=== PATIENT | female | born 1970 ===

== ENCOUNTER 2025-05-29 15:43 | Outpatient (AMB) | payer OTHER, SELFPAY ==
--- NOTE | 2025-05-29 15:44 | MHC.OFFVIS ---
Vital Signs 05/29/25 15:50 Height 5 ft 3 in Weight 213 lb 8 oz BMI 37.8 BP 139/77 Blood Pressure Location Rt brachial Position Sitting Pulse 89 Pulse Source Pulse Oximeter Pulse Oximetry (%) 100 Oxygen Delivery Method Room Air Intake Visit Reasons: multiple joint pain Intake Note: Pain today 03/15 Technical Proposal Writer Required: Yes Technical Proposal Writer Language: Production Finisher Services: Technical Proposal Writer Offered & Declined Technical Proposal Writer Name: Oleg- Accompanied by: Spouse Allergies No Known Allergies Allergy (Verified 05/29/25 15:49) HPI Comments Details: The patient is a 54-year-old individual presenting for an initial evaluation of chronic pain syndrome and polyarthralgia affecting multiple joints, including the upper arms, shoulders, elbows, knees, feet, and lower back. The patient identifies the shoulder pain as the most bothersome symptom, with the left shoulder being worse than the right. The pain is described as aching, sore, and heavy, with radiation to the upper and lower extremities. Pain severity peaks at 9/10 between 9:00 PM and 10:00 PM and is at its lowest at 1-3/10 between 9:00 AM and 12:00 PM. The pain adversely affects daily functioning, including housework, personal care, and sleep. Past medical history is significant for arthritis, chronic fatigue, headaches, depression, and obesity. The patient also reports chronic lower back pain with associated sciatica that runs down the left leg. The patient is followed by a Psychiatrist, Dr. Cardoza, and receives psychological counseling for chronic pain and depression. The patient also sees a weight management doctor who prescribes phentermine for obesity. The patient denies a history of diabetes. Previous treatments include injections from Dr. Oden, though not in the shoulders. The patient has previously undergone physical therapy for a leg issue and has a scheduled evaluation for shoulder physical therapy next week. For self-management of pain, the patient has used topical treatments including creams like Icy Hot, patches, and diclofenac gel, as well as oral medications such as Tylenol, naproxen, and ibuprofen. - Onset/Timing: Pain is most severe between 9:00 PM and 10:00 PM, rated 9/10, and less severe between 9:00 AM and 12:00 PM, rated 1-3/10. - Quality/Character: The pain is described as aching, sore, hurting, and heavy. - Primary Location: Affects multiple joints including upper arms, shoulders, elbows, knees, feet, and lower back, with the shoulders being the most bothersome area. - Radiation: Pain radiates to the upper and lower extremities, and specifically from the back down the left arm. - Exacerbating Factors: Pain is worsened by certain activities, such as reaching to the backside pocket, blow-drying hair, and cooking (e.g., stirring rice). - Interference with Function: Pain affects daily functioning, housework, personal care, and sleep. - Affect: The patient receives psychological counseling for chronic pain and depression; sleep is impaired by body aches. - Analgesia: The patient uses topical treatments (creams, patches, diclofenac) and [id number] oral medications including Tylenol, naproxen, and ibuprofen for pain relief. - Adverse Effects: No side effects from current medications were reported. - Activities of Daily Living: Daily functioning, housework, personal care, and sleep are all negatively impacted by pain. - Aberrant Drug-Related Behaviors: None [facility] Medical History Chronic right shoulder pain Urinary incontinence Chronic left shoulder pain Osteoarthritis of knee GLORY (obstructive sleep apnea) Migraine without status migrainosus Microcytic anemia Low libido Chronic pain of both knees Chronic midline low back pain with left-sided sciatica Chronic cough Chest pain Asthma Arthritis Anxiety and depression Abnormal mammogram Abnormal cervical Papanicolaou smear Review of Systems Const Details: - Constitutional: Reports chronic fatigue and insomnia, which is attributed to body aches. - Neurological: Reports headaches and sciatica running down the left leg. - Musculoskeletal: Reports diffuse pain in multiple joints including the shoulders, arms, elbows, knees, feet, and lower back. - Psychiatric: Reports a history of depression and anxiety. All systems reviewed & are unremarkable except as noted in HPI and below Physical Exam Vital Signs: Last Vital Signs Pulse 89 05/29/25 15:50 BP 139/77 05/29/25 15:50 Pulse Ox 100 05/29/25 15:50 Oxygen Delivery Method Room Air 05/29/25 15:50 BMI result Body Mass Index 37.8 General: Appears afebrile. Alert and oriented. Mood and affect appropriate. Follows and participates in conversation appropriately. Respiratory effort is unlabored. No cough. Able to transition from sit to stand unassisted. Ambulates with bilaterally normal heel strike and toe off. Multiple widespread TTPs bilaterally, including upper and lower extremities. Extrem General: Yes capillary refill normal, Yes no clubbing, cyanosis or edema and Yes no calf tenderness Right upper extremity: shoulder/upper arm (Limited ROM due to pain, difficulty with overhead reaches) Details: tenderness Location: of the A-C joint and over the subacromial bursa and crepitus; no swelling, no ecchymosis and no unusual warmth Left upper extremity: shoulder/upper arm (Limited ROM due to pain with I/E rotations) Details: tenderness Location: of the A-C joint, over the biceps tendon and over the subacromial bursa and crepitus; no swelling, no ecchymosis and no unsual warmth Results Reviewed Results Reviewed: XR SHOULDER, bilateral 05/29/25 CLINICAL INFORMATION: M25.511 - Pain in right shoulder COMPARISON: None available. TECHNIQUE: AP external rotation, Grashey, scapular Y, and axillary views of the left shoulder. FINDINGS: RIGHT SHOULDER: The AC joint is intact and unremarkable. There are small marginal sites involving medial humeral head and inferior glenoid. There is no dislocation. There is no soft tissue calcification. LEFT SHOULDER: On the external rotation view, there is subtle elevation of distal clavicle at the AC joint. The AC joint is otherwise unremarkable. Small marginal sites are visible along the medial humeral head and inferior glenoid. There is faint calcific density projecting along the anatomic neck of humerus on the frontal views, just lateral to the midline. On the axillary view, there is possible calcific density along the posterior surface of the humeral head. IMPRESSION: Right shoulder demonstrates mild glenohumeral degenerative change. Left shoulder: There is subtle elevation of the distal clavicle relative to acromion raising question of grade 1 or grade 2 AC joint separation. There are mild degenerative changes in the glenohumeral joint. On the frontal view, there is faint calcification that projects over the anatomic neck region of the humerus, just lateral to the midline. On the axillary view, there is possibly calcification along the posterior surface of the humeral head raising question of infraspinatus calcific tendinitis. Assessment & Plan Assessment & Plan (1) Bilateral shoulder pain: Code(s): M25.511 - Pain in right shoulder; M25.512 - Pain in left shoulder Category: Medical (2) Osteoarthritis of shoulders, bilateral: Code(s): M19.011 - Primary osteoarthritis, right shoulder; M19.012 - Primary osteoarthritis, left shoulder Category: Medical (3) Painful arc syndrome: Code(s): M75.100 - Unspecified rotator cuff tear or rupture of unspecified shoulder, not specified as traumatic Category: Medical (4) Polyarthralgia: Code(s): M25.50 - Pain in unspecified joint Category: Medical Plan The focus of this visit is on the patient's primary complaint of bilateral shoulder pain. To further evaluate this, bilateral shoulder x-rays were obtained today. Given imaging findings, we will proceed with Orthopedic evaluation and physical therapy. If physical therapy is not effective, an x-ray guided cortisone injection into the shoulder might be considered, as the patient has not had this procedure before. Radiofrequency ablation with positive response to nerve block was discussed as a treatment option that can provide longer-term relief, but Sprint PNS trial is not covered by the patient's insurance. The patient was informed that this practice does not prescribe opioid medications for pain management. All questions and concerns have been answered and patient agreed with the treatment plan. Follow up after Orthopedic evaluation and PT and sooner as needed. Patient was informed and verbally consented to the use of an ambient scribe for clinic note documentation during this visit. Orders: Orders XR shoulder LT min 2V 05/29/25 M25.511 - Pain in right shoulder, M25.512 - Pain in left shoulder Referrals Orthopedics Referral M19.011 - Primary osteoarthritis, right shoulder, M19.012 - Primary osteoarthritis, left shoulder, M25.511 - Pain in right shoulder, M25.512 - Pain in left shoulder Coding Level of Care Code New Pt Level 4 (75286) Diagnoses Bilateral shoulder pain M25.511; M25.512 Osteoarthritis of shoulders, bilateral M19.011; M19.012 Painful arc syndrome M75.100 Polyarthralgia M25.50
[2025-05-29 15:50] VITALS: BP 139/77; PULSE 89; O2SAT 100; BMI 37.8
--- OUTSIDE RECORDS SUMMARY | 2025-05-29 20:12 | XMS_ITS | Encounter Summary ---
Author Organization [facility] Address [address] [place] [address] Care Team Providers Care Rn Transitional Care Name Role Phone Ryder Loya MD Primary Care Provider [phone] Reason for Visit * Reason Onset Date Comments Med Refill 05/08/2025 Phentermine 15 M G Encounter Details Date Type Department Care Team ([facility] Contact Info) Description 05/08/2025 Telephone Bariatric Surgery [address] [place] [address] Ramírez Matt MD [address] [place] [phone] Social History Tobacco Use Types Packs/Day Years Used Date Smoking Tobacco: Never Assessed Comments Unknown Sex and Gender Information Value Date Recorded Sex Assigned at Female 10/20/2024 3:25 PM EDT Legal Sex Female 11:41 AM EDT Gender Identity Female 10/20/2024 3:25 PM EDT Sexual Orientation Straight 10/20/2024 3: 25 PM EDT documented as of this encounter Progress Notes * Lyly Skinner - 05/08/2025 3:20 PM EST Patient requesting refill on Phentermine 15 MG. documented in this encounter Plan of Treatment Upcoming Encounters Date Type Department Care Team ([facility] Contact Info) Description 06/12/2025 2:00 PM EST Office Visit Orthopedic Surgery - [place] [address] [facility] [address] [place] [phone] Stiven Bal, DPM [address] [facility] [address] [place] [phone] 06/12/2025 3:45 PM EST Evaluation [facility] [place] [address] [facility] [address] [place] [phone] Naila Enrique, PT 06/22/2025 2:30 PM EST Office Visit Bariatric Surgery - [place] [address] [facility] [address] [place] [phone] Ramírez Matt MD [address] [place] [phone] 09/13/2025 3:00 PM EDT Office Visit Internal Medicine - [place] [address] [facility] [address] [place] [phone] Ryder Loya MD [address] [place] [phone] documented as of this encounter Goals Goal Patient Goal Type Associated Problems Recent Progress Patient-Stated? Author LTGs (x8 visits) General On track( 025 2:26 PM EDT) Yes Aster Frank, PT Note: Patient will increase L knee flexion ROM to >/= 120 degrees for symmetry and improvements in gait - PROGRESSING (10/19 115 deg) Patient will increase L knee flexion and extension strength to >/= 4/5 for functional mobility and functional strength - PROGRESSING (10/19 4-/5 for flexion and extension) Patient will endorse being able to complete ADLs to </= 2 pt increase in discomfort - PROGRESSING Patient will endorse being able to squat to pickling solution maker pot from bottom cabinet to show increase in independence in household - PROGRESSING Patient will be able to complete 6MWT with </= 2 point increase in discomfort - PROGRESSING (10/19 completed 6MWT, great increase in pain) Patient will decrease time on 5xSTS to </= 20 seconds to show increase in functional strength - PROGRESSING (10/19 22 seconds) Patient will be independent with HEP for maintenance and progression of gains made in skilled physical therapy. - PROGRESSING documented as of this encounter Visit Diagnoses Not on filedocumented in this encounter Care Teams Rn Transitional Care Relationship Specialty Start Date End Date Ryder Loya MD [address] [place] [phone] PCP - General 02/11/24 documented as of this encounter
--- OUTSIDE RECORDS SUMMARY | 2025-05-29 20:12 | XMS_ITS ---
[facility] Care Team Organization Name Specialty Phone Email Start Date End Da te [facility] SOBIA SOTO Primary Care 05/13/2022 02/22/2024
--- OUTSIDE RECORDS SUMMARY | 2025-05-29 20:12 | XMS_ITS | Clinical Summary ---
Author Organization 175 [facility] Address [address] [place] [address] Phone Care Team Providers Care Warehouse Worker Name Role Phone Ryder Loya MD Primary Care Provider [phone] Allergies No known active allergies Medications diclofenac (VOLTAREN) 1 % topical gel Apply 2 g topically if needed. Apply 4 g topically 3 times daily as needed (pain). - Apply externally Active clonazePAM (KlonoPIN) 2 mg tablet Take 1 tablet (2 mg total) by mouth 1 (one) time each day. Max Daily Amount: 2 mg 03/28/20 24 Active Dayvigo 10 mg tablet Take 10 mg by mouth 1 (one) time each day in the morning. Max Daily Amount: 10 mg 08/19/19 25 Active venlafaxine XR (EFFEXOR-XR) 75 mg 24 hr capsule Take 1 capsule (75 mg total) by mouth 1 (one) time each day. at bedtime 08/17/19 25 Active rizatriptan (MAXALT) 10 mg tablet PLEASE SEE ATTACHED FOR DETAILED DIRECTIONS 9 tablet 10/08/19 25 Active cholecalciferol (Vitamin D3) 50 mcg (2,000 unit) tablet Take 1 tablet (2,000 Units total) by mouth 1 (one) time each day. 90 tablet 3 10/12/19 25 026 Active naproxen (NAPROSYN) 500 mg tablet TOME 1 TABLETA POR VIA ORAL DOS VECES AL RAY CUANDO SEA NECESARIO FOR MILD PAIN 20 tablet 01/21/20 25 Active albuterol HFA (Ventolin HFA) 90 mcg/actuation inhalerIndicatio ns:Mild intermittent asthma without complication Inhale 2 puffs by mouth every 4 (four) hours if needed for wheezing or shortness of breath. 8 g 5 02/22/20 25 026 Active lamoTRIgine (LaMICtal) 25 mg tablet TOME 1 TABLETA POR V A ORAL TODOS LOS D EN LA MA RAMONA 03/07/20 25 Active topiramate (Topamax) 50 mg tabletIndication s:Class 2 severe obesity due to excess calories with serious comorbidity and body mass index (BMI) of 39.0 to 39.9 in adult Take 1 tablet (50 mg total) by mouth at bedtime. 30 each 2 04/04/20 25 025 Active albuterol 2.5 mg /3 mL (0.083 %) nebulizer solution Take 3 mL (2.5 mg total) by nebulization every 4 (four) hours if needed for wheezing or shortness of breath. 25 mL 11 04/25/20 25 026 Active phentermine 15 mg capsuleIndicatio ns:Class 2 severe obesity due to excess calories with serious comorbidity and body mass index (BMI) of 39.0 to 39.9 in adult Take 1 capsule (15 mg total) by mouth 1 (one) time each day before breakfast. Max Daily Amount: 15 mg 30 each 05/11/20 25 026 Active ergocalciferol (VITAMIN D-2) 1,250 mcg (50,000 unit) capsule Take 1 capsule (50,000 Units total) by mouth 1 (one) time per week. 12 each 05/09/20 25 026 Active fexofenadine (KIMBERLY) 180 mg tablet Take 1 tablet (180 mg total) by mouth 1 (one) time each day for 15 days. 15 each 05/09/20 25 Active famotidine (Pepcid) 40 mg tablet Take 1 tablet (40 mg total) by mouth 1 (one) time each day. 90 each 1 05/09/20 25 026 Active acetaminophen (TYLENOL) 500 mg tablet Take 1 tablet (500 mg total) by mouth every 6 (six) hours if needed for mild pain. 90 tablet 2 05/09/20 Active hydrocortisone 0.5 % topical cream Apply topically 2 (two) times a day. 28.4 g 05/09/20 Active fexofenadine (KIMBERLY) 180 mg tablet Take 1 tablet (180 mg total) by mouth 1 (one) time each day for 15 days. 15 each 02/22/20 25 025 Discontin ued(Reord er) famotidine (Pepcid) 40 mg tablet Take 1 tablet (40 mg total) by mouth 1 (one) time each day. 90 each 1 02/22/20 25 025 Discontin ued(Reord er) acetaminophen (TYLENOL) 500 mg tablet Take 1 tablet (500 mg total) by mouth every 6 (six) hours if needed for mild pain. 90 tablet 2 02/22/20 25 Discontin ued(Reord er) hydrocortisone 0.5 % topical cream Apply topically 2 (two) times a day. 28.4 g 02/23/20 25 025 Discontin ued(Reord er) ergocalciferol (VITAMIN D-2) 1,250 mcg (50,000 unit) capsule Take 1 capsule (50,000 Units total) by mouth 1 (one) time per week. 12 each 03/29/20 25 025 Discontin ued(Reord er) phentermine 15 mg capsuleIndicatio ns:Class 2 severe obesity due to excess calories with serious comorbidity and body mass index (BMI) of 39.0 to 39.9 in adult Take 1 capsule (15 mg total) by mouth 1 (one) time each day before breakfast. Max Daily Amount: 15 mg 30 each 04/04/20 25 Discontin ued(Reord er) Hospital, Clinic, or Other Facility Administered Medication Ordered Dose Route Frequency Start Date End Date Status lidocaine (PF) (XYLOCAINE-MPF) 1 % injection 0.5 mLIndications:Planta r fascial fibromatosis .5 mL Once PRN Procedure 05/16/2025 05/16/2025 Ended lidocaine (PF) (XYLOCAINE-MPF) 1 % injection 0.5 mLIndications:Planta r fascial fibromatosis .5 mL Once PRN Procedure 05/16/2025 05/16/2025 Ended triamcinolone acetonide (KENALOG-40) 40 mg/mL injection 20 mgIndications:Planta r fascial fibromatosis 20 mg Once PRN Procedure 05/16/2025 05/16/2025 Ended triamcinolone acetonide (KENALOG-40) 40 mg/mL injection 20 mgIndications:Planta r fascial fibromatosis 20 mg Once PRN Procedure 05/16/2025 05/16/2025 Ended Active Problems Problem Noted Date Diagnosed Date Abnormal cervical Papanicolaou smear 03/29/2025 Abnormal mammogram 03/29/2025 Abnormal perimenopausal bleeding 03/29/2025 Arthritis 03/29/2025 Asthma 03/29/2025 Chronic cough 03/29/2025 Low libido 03/29/2025 Microcytic anemia 03/29/2025 Obstructive sleep apnea 03/29/2025 Severe obesity (CMS/HCC V24, CMS/HCC V28) 2024 Urinary incontinence, mixed 03/29/2025 Chest pain 08/10/2024 Obesity (BMI 30-39.9) 07/25/2024 Chronic midline low back pain with left-sided sc iatica 05/03/2024 Chronic pain of both knees 05/03/2024 Mild intermittent asthma without complication Anxiety and depression 05/03/2024 Seasonal allergic reaction 05/03/2024 Osteoarthritis of both knees 05/03/2024 Migraine without status migrainosus, not intract able 05/03/2024 Encounters Date Type Department Care Team Description 05/16/2025 2:15 PM EST Office Visit Orthopedic Surgery - [place] [facility] [address] [facility] [address] [place] [phone] Stiven Bal, DPM Plantar fascial fibromatosis (Primary Dx); Equinus contracture of ankle; Left foot pain 05/15/2025 2:00 PM EST Nutrition Internal Medicine - [place] [address] [facility] [address] [place] [phone] Jocy Bernabe, TOM Severe obesity (CMS/HCC V24, CMS/HCC V28) (Primary Dx) 05/08/2025 Telephone Bariatric Surgery [address] [address] Ramírez Matt MD 04/18/2025 Telephone Internal Medicine [address] [phone] Ryder Loya MD 04/18/2025 [place] [facility] [address] [address] Ryder Loya MD 04/18/2025 Telephone Internal Medicine [address] [address] Ryder Loya MD 04/04/2025 3:15 PM EDT Office Visit Bariatric Surgery [address] [address] Ramírez Matt MD Class 2 severe obesity due to excess calories with serious comorbidity and body mass index (BMI) of 39.0 to 39.9 in adult (CMS/HCC V24, CMS/HCC V28) (Primary Dx) 03/29/2025 1:30 PM EDT Office Visit Internal Medicine [address] [phone] Ryder Loya MD Chronic left shoulder pain (Primary Dx); Multiple joint pain; Osteoarthritis of both knees, unspecified osteoarthritis type; Urinary tract infection without hematuria, site unspecified 03/29/2025 Telephone Internal Medicine [address] [address] Sada Keith [place] 03/20/2025 Telephone Internal Medicine [address] [address] Ryder Loya MD 03/01/2025 [place] [facility] [address] [address] Ryder Loya MD from Last 3 Months Immunizations Immunization Administration Dates Next Due Influenza trivalent, 0.5mL, preservative free (Fluarix; FluLaval; Fluzone) ages 6mo and older (Afluria) 3 years and older 07/25/2024 Influenza trivalent, recombi nant, 0.5mL, preservative free (Flublok) 9yo and older 03/09/2025 Pneumococcal conjugate 20 va lent (Prevnar 20, PCV 20) 2mo and older 07/25/2024 Zoster recombinant (Shingrix) 19yo and older Social History Tobacco Use Types Packs/Day Years Used Date Smoking Tobacco: Never Assessed Comments Unknown Sex and Gender Information Value Date Recorded Sex Assigned at Female 10/20/2024 3:25 PM EDT Legal Sex Female 11:41 AM EDT Gender Identity Female 10/20/2024 3:25 PM EDT Sexual Orientation Straight 10/20/2024 3: 25 PM EDT Last Filed Vital Signs Vital Sign Reading Time Taken Comments Blood Pressure 127/75 04/04/2025 3:04 PM EDT Pulse 78 04/04/2025 3:04 PM EDT Temperature 36.6 C (97.8 F) 04/04/2025 3:04 PM EDT Respiratory Rate - - Oxygen Saturation 99% 03/29/2025 1:05 PM EDT Inhaled Oxygen Concentration - - Weight 98.4 kg (216 lb 14.9 oz) 05/16/2025 2:26 PM EST Height 160 cm (5' 2.99 ) 05/16/2025 2:26 PM EST Body Mass Index 38.44 05/16/2025 2:26 PM EST Plan of Treatment Upcoming Encounters Date Type Department Care Team (Late st Contact Info) Description 06/12/2025 2:00 PM EST Office Visit Orthopedic Surgery - [place] [address] [address] Stiven Bal, ROSA 175 [facility] [address] [place] [address] 06/12/2025 3:45 PM EST Evaluation [facility] Out[facility] - [place] [address] [facility] [address] [place] [address] Naila Enrique, PT 06/22/2025 2:30 PM EST Office Visit Bariatric Surgery - [place] [address] [facility] [address] [place] [address] Ramírez Matt MD [address] [place] [phone] 09/13/2025 3:00 PM EDT Office Visit Internal Medicine - [place] 175 [facility] [address] [place] [address] Ryder Loya MD [address] [place] [phone] Health Maintenance Due Date Last Done Comments Breast Cancer Screening 1969 Colorectal Cancer Screening: Colonoscopy 1969 DTaP,Tdap,and Td Vaccines (1 - Tdap) 1988 Hepatitis B Vaccines (1 of 3 - 19+ 3-dose series) 1988 Cervical Cancer Screening: P ap Smear 1990 RSV Immunization Adult Patients (1 - Risk 50-74 years 1-dose series) 12/26/2019 HIV Screening 04/30/2024 Social Influencers of Health Screening 04/30/2024 Depression Screening 07/06/2024 04/29/2024 COVID-19 Vaccine (1 - 2024-2 6 season) 2025 Cholesterol Screening (Lipid Panel) 05/02/2029 05/02/2024 Hepatitis C Screening Completed 04/29/2024 Pneumococcal Vaccine: 50+ Years Completed 07/25/2024 Influenza Vaccine Completed 03/09/2025, 07/25/2024 Zoster Vaccines Completed 05/09/2025, 01/23/2025 HIB Vaccines Aged Out No longer eligi ble based on patient's age to complete this topic HPV Vaccines Aged Out No longer eligi ble based on patient's age to complete this topic Hepatitis A Vaccines Aged Out No long er eligible based on patient's age to complete this topic IPV Vaccines Aged Out No longer eligi ble based on patient's age to complete this topic MMR Vaccines Aged Out No longer eligi ble based on patient's age to complete this topic Meningococcal ACWY Vaccine Aged Out N o longer eligible based on patient's age to complete this topic Meningococcal B Vaccine Aged Out No l onger eligible based on patient's age to complete this topic RSV Immunization Patients Under 20 months Aged Out No longer eligible b ased on patient's age to complete this topic Varicella Vaccines Aged Out No longer eligible based on patient's age to complete this topic Goals Goal Patient Goal Type Associated Problems Recent Progress Patient-Stated? Author Selene (x8 visits) General On track( 025 2:26 [...] will endorse being able to squat to continuous pickling line pickler pot from bottom cabinet to show increase [...] made in skilled physical therapy. - PROGRESSING Procedures Procedure Name Priority Date/Time Associated Diagnosis Comments INJECTION TENDON OR LIGAMENT Routine 05/16/2025 2:15 PM EST Plantar fascial fibromatosis INJECTION TENDON OR LIGAMENT Routine 05/16/2025 2:15 PM EST Plantar fascial fibromatosis DSOUZA URINE CULTURE TUBE Routine 03/29/2025 2:15 PM EDT Urinary tract infection without hematuria, site unspecified URINALYSIS WITH REFLEX MICROSCOPIC AND CULTURE Routine 03/29/2025 2:15 PM EDT Urinary tract infection without hematuria, site unspecified CBC WITH AUTO DIFFERENTIAL Routine 03/29/2025 2:15 PM EDT Migraine without aura and without status migrainosus, not intractable URINALYSIS WITH REFLEX MICROSCOPIC AND CULTURE Routine 03/29/2025 2:15 PM EDT Urinary tract infection without hematuria, site unspecified THYROID STIMULATING HORMONE WITH REFLEX TO FREE T4 AND FREE T3 Routine 03/29/2025 2:15 PM EDT Migraine without aura and without status migrainosus, not intractable HEPATIC FUNCTION PANEL Routine 03/29/2025 2:15 PM EDT Migraine without aura and without status migrainosus, not intractable BORRELIA BURGDORFERI ANTIBODY Routine 03/29/2025 2:15 PM EDT Migraine without aura and without status migrainosus, not intractable CBC AND DIFFERENTIAL Routine 03/29/2025 2:15 PM EDT Migraine without aura and without status migrainosus, not intractable BUN Routine 03/29/2025 2:15 PM EDT Migraine without aura and without status migrainosus, not intractable CREATININE, SERUM Routine 03/29/2025 2:1 5 PM EDT Migraine without aura and without status migrainosus, not intractable VITAMIN D 25 HYDROXY Routine 03/29/2025 2:15 PM EDT Migraine without aura and without status migrainosus, not intractable VITAMIN B12 Routine 03/29/2025 2:15 PM EDT Migraine without aura and without status migrainosus, not intractable LIPID PANEL Routine 05/02/2024 DEPRESSION SCREENING Routine 04/29/2024 HEPATITIS C SCREENING Routine 04/29/2024 from Last 3 Months or Most Recently Relevant to Health Maintenance Results * Injection tendon or ligament (05/16/2025 2:15 PM EST) Narrative Stiven Bal DPM - 05/16/2025 2:15 PM EST Stiven Bal DPM 05/16/2025 6:21 PM Injection tendon or ligament Indications: pain Details: 25 G needle Medications: 0.5 mL lidocaine (PF) 1 %; 20 mg triamcinolone acetonide 40 mg/mL Informed Consent: Site: Foot ligament tendon us Stiven Bal DPM IN CLINIC/BEDSIDE ORDERAB LES Final Result * Injection tendon or ligament (05/16/2025 2:15 PM EST) Stiven Lawton DPM - 05/16/2025 2:15 PM EST Stiven Bal DPM 05/16/2025 6:21 PM Injection tendon or ligament Indications: pain Details: 25 G needle Medications: 0.5 mL lidocaine (PF) 1 %; 20 mg triamcinolone acetonide 40 mg/mL Informed Consent: Site: Foot ligament tendon Stiven Bal DPM IN CLINIC/BEDSIDE ORDERAB LES Final Result * Urinalysis with reflex microscopic and culture (03/29/2025 2:15 PM EDT) Pathologist [facility] Specific [place] Urine 1.019 1.003 - 1.030 LAB URINALYSIS - AUTOMATED METHOD 03/29/2025 6:23 PM [facility] pH, Urine 5.5 5.0 - 8.0 pH LAB URINALYSIS - AUTOMATED METHOD 03/29/2025 6:23 PM [facility] Leukocytes, Urine Negative Negative LAB URINALYSIS - AUTOMATED METHOD 03/29/2025 6:23 PM [facility] Nitrite, Urine Negative Negative LAB URINALYSIS - AUTOMATED METHOD 03/29/2025 6:23 PM [facility] Protein, Urine Negative <=Trace mg/dL LAB URINALYSIS - AUTOMATED METHOD 03/29/2025 6:23 PM [facility] Glucose, Urine Negative Negative mg/dL LAB URINALYSIS - AUTOMATED METHOD 03/29/2025 6:23 PM [facility] Ketones, Urine Negative Negative mg/dL LAB URINALYSIS - AUTOMATED METHOD 03/29/2025 6:23 PM EDT [facility] Urobilinogen, Urine 0.2 0.2 - 1.0 mg/dL LAB URINALYSIS - AUTOMATED METHOD 03/29/2025 6:23 PM EDT [facility] Bilirubin, Urine Negative Negative LAB URINALYSIS - AUTOMATED METHOD 03/29/2025 6:23 PM EDT [facility] Blood, Urine Negative Negative LAB URINALYSIS - AUTOMATED METHOD 03/29/2025 6:23 PM EDT [facility] Urine Urine specimen obtained by clean catch procedure / Unknown Non-blood Collection / Unknown 03/29/2025 2:15 PM EDT 03/29/2025 2:16 PM EDT Ryder Loya MD LAB URINE ORDERABLES Final Resul t Performing Organization Address City/[facility]/ZIP Co de Phone Number [facility] [address] [place] [address], [place] [phone] * Dsouza urine culture tube (03/29/2025 2:15 PM EDT) Extra Tube Hold for add-ons. 03/29/2025 7:01 PM EDT [facility] Comment:Auto resulted. Urine Urine specimen obtained by clean catch procedure / Unknown Non-blood Collection / Unknown 03/29/2025 2:15 PM EDT 03/29/2025 2:16 PM EDT us Ryder Loya MD LAB URINE ORDERABLES Final Resul t Performing Organization Address City/[facility]/ZIP Co de Phone Number [facility] [address] [place] [address], [place] [phone] * Thyroid stimulating hormone with reflex to free t4 and free t3 (03/29/2025 2:15 PM EDT) TSH 1.92 0.40 - 4.00 mcIU/mL LAB CHEMISTRY METHOD 03/29/2025 7:33 PM EDT [facility] Blood Venous blood specimen / Unknown Venipuncture / Unknown 03/29/2025 2:15 PM EDT 03/29/2025 2:16 PM EDT Robles Manzano MD LAB BLOOD ORDERABLES Fin al Result [facility] [address] [place] [address], * (ABNORMAL) CBC auto differential (03/29/2025 2:15 PM EDT) [facility] WBC 8.4 4.8 - 10.8 K/mcL LAB HEMETOLOGY METHOD 03/29/2025 6:19 PM EDT [facility] RBC 5.70(H) 3.80 - 4.80 M/mcL LAB HEMETOLOGY METHOD 03/29/2025 6:19 PM EDT [facility] Hemoglobin 14.6 11.5 - 16.0 g/dL LAB HEMETOLOGY METHOD 03/29/2025 6:19 PM EDT [facility] Hematocrit 47.2(H) 35.0 - 47.0 % LAB HEMETOLOGY METHOD 03/29/2025 6:19 PM EDT [facility] MCV 83.0 79.0 - 98.0 FL LAB HEMETOLOGY METHOD 03/29/2025 6:19 PM EDT [facility] MCH 25.7(L) 27.0 - 32.0 pcg LAB HEMETOLOGY METHOD 03/29/2025 6:19 PM EDT [facility] MCHC 30.9(L) 32.0 - 37.0 g/dL LAB HEMETOLOGY METHOD 03/29/2025 6:19 PM EDT [facility] RDW 14.1 11.0 - 15.0 % LAB HEMETOLOGY METHOD 03/29/2025 6:19 PM [facility] Platelets 229 130 - 400 K/mcL LAB HEMETOLOGY METHOD 03/29/2025 6:19 PM [facility] MPV 12.4(H) 7.0 - 11.0 FL LAB HEMETOLOGY METHOD 03/29/2025 6:19 PM [facility] NRBC 0.0 <1.0 % LAB HEMETOLOGY METHOD 03/29/2025 6:19 PM [facility] NRBC Absolute 0.00 <0.10 K/mcL LAB HEMETOLOGY METHOD 03/29/2025 6:19 PM [facility] Neutrophils Relative 61.5 % LAB HEMETOLOGY METHOD 03/29/2025 6:19 PM [facility] Lymphocytes Relative 27.2 % LAB HEMETOLOGY METHOD 03/29/2025 6:19 PM [facility] Monocytes Relative 8.1 % LAB HEMETOLOGY METHOD 03/29/2025 6:19 PM [facility] Eosinophils Relative 2.0 % LAB HEMETOLOGY METHOD 03/29/2025 6:19 PM [facility] Basophils Relative 0.7 % LAB HEMETOLOGY METHOD 03/29/2025 6:19 PM [facility] Immature Granulocytes Relative 0.5 % LAB HEMETOLOGY METHOD 03/29/2025 6:19 PM [facility] Neutrophils Absolute 5.14 1.50 - 7.00 K/mcL LAB HEMETOLOGY METHOD 03/29/2025 6:19 PM [facility] Lymphocytes Absolute 2.28 1.00 - 5.00 K/mcL LAB HEMETOLOGY METHOD 03/29/2025 6:19 PM EDT [facility] Monocytes Absolute 0.68 0.20 - 1.00 K/mcL LAB HEMETOLOGY METHOD 03/29/2025 6:19 PM EDT [facility] Eosinophils Absolute 0.17 0.00 - 0.50 K/mcL LAB HEMETOLOGY METHOD 03/29/2025 6:19 PM EDT [facility] Basophils Absolute 0.06 0.00 - 0.20 K/mcL LAB HEMETOLOGY METHOD 03/29/2025 6:19 PM EDT [facility] Immature Granulocytes Absolute 0.04(H) 0.00 - 0.03 K/mcL LAB HEMETOLOGY METHOD 03/29/2025 6:19 PM EDT [facility] Blood Venous blood specimen / Unknown Venipuncture / Unknown 03/29/2025 2:15 PM EDT 03/29/2025 2:16 PM EDT us Robles Manzano MD LAB BLOOD ORDERABLES Fin al Result [facility] [address] [place] [address], * Borrelia burgdorferi antibody (03/29/2025 2:15 PM EDT) [facility] Lyme Ab Negative Negative LAB CHEMISTRY METHOD 03/30/2025 9:11 AM EDT [facility] Comment: No laboratory evidence of infection with B. burgdorferi (Lyme disease). Negative results may occur in patients recently infected (<=14 days) with B. burgdorferi. If recent infection is suspected, repeat testing on a new sample collected in 7- 14 days is recommended. Blood Venous blood specimen / Unknown Venipuncture / Unknown 03/29/2025 2:15 PM EDT 03/29/2025 2:16 PM EDT us Robles Manzano MD LAB BLOOD ORDERABLES Fin al Result Performing Organization Address City/[facility]/ZIP Co de Phone Number [facility] [address] [place] [address], [place] [phone] * Creatinine (03/29/2025 2:15 PM EDT) Creatinine 0.77 0.50 - 1.10 mg/dL LAB CHEMISTRY METHOD 03/29/2025 7:06 PM EDT [facility] eGFR 91 >=60 mL/min/1. 73m2 LAB CHEMISTRY METHOD 03/29/2025 7:06 PM EDT [facility] Comment:Calculation based on the Chronic Kidney Disease Epidemiology Collaboration (CKD-EPI) equation refit without adjustment for race. Blood Venous blood specimen / Unknown Venipuncture / Unknown 03/29/2025 2:15 PM EDT 03/29/2025 2:16 PM EDT us Robles Manzano MD LAB BLOOD ORDERABLES Fin al Result Performing Organization Address [facility]/ZIP Co de Phone Number [facility] [address] [place] [address], * (ABNORMAL) Vitamin D 25 hydroxy (03/29/2025 2:15 PM EDT) Vit D, 25-Hydroxy 21.3(L) 30.0 - 80.0 ng/mL LAB CHEMISTRY METHOD 03/29/2025 7:31 PM EDT [facility] Blood Venous blood specimen / Unknown Venipuncture / Unknown 03/29/2025 2:15 PM EDT 03/29/2025 2:16 PM EDT us Robles Manzano MD LAB BLOOD ORDERABLES Fin al Result Performing Organization Address City/[facility]/ZIP Co de Phone Number [facility] [address] [place] [address], * BUN (03/29/2025 2:15 PM EDT) Pathologist [facility] BUN 13 5 - 25 mg/dL LAB CHEMISTRY METHOD 03/29/2025 7:06 PM EDT [facility] Blood Venous blood specimen / Unknown Venipuncture / Unknown 03/29/2025 2:15 PM EDT 03/29/2025 2:16 PM EDT us Robles Manzano MD LAB BLOOD ORDERABLES Fin al Result [facility] [address] [place] [address], [place] [phone] * Vitamin B12 (03/29/2025 2:15 PM EDT) [facility] Vitamin B-12 634 250 - 900 pcg/mL LAB CHEMISTRY METHOD 03/29/2025 7:31 PM EDT [facility] Blood Venous blood specimen / Unknown Venipuncture / Unknown 03/29/2025 2:15 PM EDT 03/29/2025 2:16 PM EDT us Robles Manzano MD LAB BLOOD ORDERABLES Fin al Result Performing Organization Address City/[facility]/ZIP Co de Phone Number [facility] [address] [place] [address], [place] [phone] * (ABNORMAL) Hepatic function panel (03/29/2025 2:15 PM EDT) [facility] Total Protein 7.4 6.0 - 8.0 g/dL LAB CHEMISTRY METHOD 03/29/2025 7:31 PM EDT [facility] Albumin 3.6 3.2 - 5.0 g/dL LAB CHEMISTRY METHOD 03/29/2025 7:31 PM EDT [facility] Total Bilirubin 0.4 0.0 - 1.4 mg/dL LAB CHEMISTRY METHOD 03/29/2025 7:31 PM EDT [facility] Bilirubin, Direct 0.1 0.0 - 0.3 mg/dL LAB CHEMISTRY METHOD 03/29/2025 7:31 PM EDT [facility] Bilirubin, Indirect 0.3 0.0 - 1.1 mg/dL LAB CHEMISTRY METHOD 03/29/2025 7:31 PM EDT [facility] ALT (SGPT) 28 10 - 60 unit/L LAB CHEMISTRY METHOD 03/29/2025 7:31 PM EDT [facility] AST (SGOT) 18 10 - 42 unit/L LAB CHEMISTRY METHOD 03/29/2025 7:31 PM EDT [facility] Alkaline Phosphatase 134(H) 42 - 121 unit/L LAB CHEMISTRY METHOD 03/29/2025 7:31 PM EDT [facility] Blood Venous blood specimen / Unknown Venipuncture / Unknown 03/29/2025 2:15 PM EDT 03/29/2025 2:16 PM EDT Robles Manzano MD LAB BLOOD ORDERABLES Fin al Result [facility] [address] [place] [address], * (ABNORMAL) Lipid panel (05/02/2024) Pathologist [facility] LDL/HDL Ratio 3 0 - 4 Triglycerides 57 0 - 150 mg/dL Cholesterol 195 0 - 200 mg/dL HDL 68 >=40 mg/dL LDL Cholesterol 116(A) 0 - 100 mg/dL Blood Venous blood specimen / Unknown Danyell García MD LAB BLOOD ORDERABLES Carmen l Result * Depression Screening (04/29/2024) [facility] Scre[facility] abstracted Historical Provider HEALTH MAINTENANCE Final Result * Hepatitis C Screening (04/29/2024) Hepatitis C Screening abstracted us Historical Provider HEALTH MAINTENANCE Final Result from Last 3 Months or Most Recently Relevant to Health Maintenance Insurance [facility] [employer] Care Teams Warehouse Worker Relationship Specialty Start Date End Date Ryder Loya MD [address] [place] [id number] PCP - General 02/11/24
== END 2025-05-29 16:10 | disposition home or self-care (01) ==
PROVIDERS: PCP Student in an Organized Health Care Education/Training Program; Visit Provider Nurse Practitioner Family
DX: M25.511 Pain in right shoulder (principal); M25.512 Pain in left shoulder; M19.011 Primary osteoarthritis, right shoulder; M19.012 Primary osteoarthritis, left shoulder; M75.100 Unspecified rotator cuff tear or rupture of unspecified shoulder, not specified as traumatic; M25.50 Pain in unspecified joint
CPT/HCPCS: 99204

== ENCOUNTER 2025-05-29 15:43 | Outpatient (REF) | payer OTHER, SELFPAY ==
--- NOTE | ~2025-05-29 | XR_ITS ---
EXAMINATION: XR SHOULDER, bilateral CLINICAL INFORMATION: M25.511 - Pain in right shoulder COMPARISON: None available. TECHNIQUE: AP external rotation, Grashey, scapular Y, and axillary views of the left shoulder. FINDINGS: RIGHT SHOULDER: The AC joint is intact and unremarkable. There are small marginal sites involving medial humeral head and inferior glenoid. There is no dislocation. There is no soft tissue calcification. LEFT SHOULDER: On the external rotation view, there is subtle elevation of distal clavicle at the AC joint. The AC joint is otherwise unremarkable. Small marginal sites are visible along the medial humeral head and inferior glenoid. There is faint calcific density projecting along the anatomic neck of humerus on the frontal views, just lateral to the midline. On the axillary view, there is possible calcific density along the posterior surface of the humeral head. XR/XR Shoulder Marc min 2V IMPRESSION: Right shoulder demonstrates mild glenohumeral degenerative change. Left shoulder: There is subtle elevation of the distal clavicle relative to acromion raising question of grade 1 or grade 2 AC joint separation. There are mild degenerative changes in the glenohumeral joint. On the frontal view, there is faint calcification that projects over the anatomic neck region of the humerus, just lateral to the midline. On the axillary view, there is possibly calcification along the posterior surface of the humeral head raising question of infraspinatus calcific tendinitis. Electronically signed by: Joe Churchill MD 05/29/2025 05:32 PM EST
== END 2025-05-29 15:44 | disposition home or self-care (01) ==
LOC: HO.XRAY 15:43
PROVIDERS: PCP Student in an Organized Health Care Education/Training Program; Visit Provider Nurse Practitioner Family
DX: M19.011 Primary osteoarthritis, right shoulder (principal); M19.012 Primary osteoarthritis, left shoulder; M75.101 Unspecified rotator cuff tear or rupture of right shoulder, not specified as traumatic; M75.102 Unspecified rotator cuff tear or rupture of left shoulder, not specified as traumatic
CPT/HCPCS: 73030; 99202

== ENCOUNTER → 2025-05-29 16:25 | Outpatient (BNV) | payer OTHER, SELFPAY | PROVIDERS: PCP Student in an Organized Health Care Education/Training Program; Visit Provider Radiology Diagnostic Radiology | DX: M19.011 Primary osteoarthritis, right shoulder (principal); M19.012 Primary osteoarthritis, left shoulder | CPT/HCPCS: 73030 ==